=== PATIENT | male | born 1955 | race Caucasian/White ===

== ENCOUNTER → 2020-09-23 | Outpatient (CLI) | payer MEDICARE ==
[2020-09-23 12:02] LABS: BASOPHILS % (AUTO) 1 % (0-1); EOSINOPHILS % (AUTO) 3 % (1-7); LYMPHOCYTES % (AUTO) 25 % (22-44); MEAN CORPUSCULAR HEMOGLOBIN 29.8 pg (27.5-34.5); MEAN CORPUSCULAR HGB CONC 33.7 g/dL (33.2-36.2); MEAN PLATELET VOLUME 7.9 fL (7.4-10.4); MONOCYTES % (AUTO) 7 % (2-9); NEUTROPHILS % (AUTO) 64 % (42-75); PLATELET COUNT 254 x10^3/uL (130-400); RED BLOOD COUNT 5.36 x10^6/uL (4.38-5.82); RED CELL DISTRIBUTION WIDTH 13.8 % (9.4-14.8)
[2020-09-23 12:04] LABS: MD NO
[2020-09-23 12:13] LABS: ALANINE AMINOTRANSFERASE 32 U/L (12-78); ALBUMIN 3.8 g/dL (3.4-5.0); ANION GAP 8 mmol/L (5-15); CHLORIDE 108 mmol/L (98-107); CREATININE 1.13 mg/dL (0.7-1.3)
[2020-09-23 12:15] LABS: ALKALINE PHOSPHATASE 89 U/L (45-117); BILIRUBIN,TOTAL 0.6 mg/dL (0.2-1.0); TOTAL PROTEIN 7.7 g/dL (6.4-8.2)
== END | disposition home or self-care (01) ==
LOC: STAR 10:49
PROVIDERS: ATTEND Orthopaedic Surgery
DX: Z01.812 Encounter for preprocedural laboratory examination (principal); Z20.828 Contact with and (suspected) exposure to other viral communicable diseases; M16.12 Unilateral primary osteoarthritis, left hip
CPT/HCPCS: 80053; 85025; 87081; 87635; 93005

== ENCOUNTER 2020-09-28 08:48 | Day surgery (SDC) | payer MEDICARE ==
[~2020-09-28] VITALS: Ht 190.5 cm; Wt 102.5 kg
[~2020-09-28 08:48] MED LIST: EPINEPHRINE 1 MG/ML, 1ML ONE; KETOROLAC 60 MG/2 ML ONE; ROPIvacaine/PF 0.2%, 20 ML ONE; SODIUM CHLORIDE 0.9% 50 ML ONE; TRANEXAMIC ACID 100 MG/ML, 10ML ONE; VANCOMYCIN 1,000 MG ONE
[2020-09-28] MEDS ORDERED: CHLORHEXIDINE 15 ML UDC MM ONE (09:30)
[2020-09-28] MEDS ORDERED: LACTATED RINGERS 1,000 ML IV SCH (09:30)
[2020-09-28] MEDS ORDERED: MIDAZOLAM 1 MG/ML, 2ML ONE (09:41)
[2020-09-28] MEDS ORDERED: FENTANYL PF 250 MCG/5ML ONE (09:41)
[2020-09-28] MEDS ORDERED: SODIUM CHLORIDE 0.9% IV SCH (10:00)
[2020-09-28] MEDS ORDERED: VANCOMYCIN 2,000 MG in SODIUM CHLORIDE 0.9% 500 ML IV ONE (10:00)
[2020-09-28] MEDS ORDERED: VANCOMYCIN PER PHARMACY MC PRN (10:00)
[2020-09-28] MEDS ORDERED: PHARMACOKINETIC CONSULTATION MC ONE (10:00)
[2020-09-28] MEDS ORDERED: VANCOMYCIN IV SCH (10:00)
[2020-09-28] MEDS ORDERED: HYDROmorphone 1 MG/ML, 1ML INJ IVPush PRN (10:30)
[2020-09-28] MEDS ORDERED: ACETAMINOPHEN 325 MG TABLET PO PRN (10:30)
[2020-09-28] MEDS ORDERED: LABETALOL 5MG/ML, 20ML IV PRN (10:30)
[2020-09-28] MEDS ORDERED: MORPHINE SULFATE 4 MG/ML, 1ML IVPush PRN (10:30)
[2020-09-28] MEDS ORDERED: KETOROLAC 30 MG/1 ML IV SCH (10:30)
[2020-09-28] MEDS ORDERED: PROMETHAZINE 12.5 MG SUPP PR PRN (10:30)
[2020-09-28] MEDS ORDERED: ONDANSETRON 4 MG TABLET PO PRN ×2 (10:30)
[2020-09-28] MEDS ORDERED: OXYcodone/APAP 5/325MG TABLET PO PRN (10:30)
[2020-09-28] MEDS ORDERED: ONDANSETRON 2MG/ML, 2ML IVPush PRN (10:30)
[2020-09-28] MEDS ORDERED: LORazepam 2 MG/ML, 1ML IVPush PRN (10:30)
[2020-09-28] MEDS ORDERED: MEPERIDINE/PF 25MG/0.5ML IVPush PRN (10:30)
[2020-09-28] MEDS ORDERED: DIAZEPAM 5 MG TABLET PO PRN (10:30)
[2020-09-28] MEDS ORDERED: PROMETHAZINE 25 MG/ML, 1ML IVPush PRN (10:30)
[2020-09-28] MEDS ORDERED: GLYCOPYRROLATE 0.2MG/1ML, 5ML ONE (11:13)
[2020-09-28] MEDS ORDERED: ONDANSETRON 2MG/ML, 2ML ONE (11:13)
[2020-09-28] MEDS ORDERED: NEOSTIGMINE 1 MG/ML, 10ML ONE (11:13)
[2020-09-28] MEDS ORDERED: ROCURONIUM 10MG/ML,5ML ONE (11:13)
[2020-09-28] MEDS ORDERED: CEFAZOLIN 1,000 MG ONE (11:13)
[2020-09-28] MEDS ORDERED: PROPOFOL 10 MG/ML, 20ML ONE (11:13)
[2020-09-28] MEDS ORDERED: OXYcodone 5 MG/5 ML ORAL.SOL UDC ONE ×2 (12:11→12:26)
[2020-09-28] MEDS ORDERED: FENTANYL PF 100 MCG/2ML ONE (12:11)
[2020-09-28] MEDS: OXYcodone 5 MG/5 ML ORAL.SOL UDC PO PRN ×2 (12:12→12:40)
[2020-09-28] MEDS: FENTANYL PF 100 MCG/2ML IV PRN ×3 (12:15→13:00)
[2020-09-28] MEDS ORDERED: ACETAMINOPHEN 325 MG TABLET ONE (12:26)
[2020-09-28] MEDS ORDERED: ACETAMINOPHEN 650 MG/20.3 ML UDC ONE (12:26)
[2020-09-28] MEDS ORDERED: TRANEXAMIC ACID 1,000 MG in SODIUM CHLORIDE 0.9% 100 ML IVPB ONE (12:30)
[2020-09-28] MEDS ORDERED: METHOCARBAMOL 1,000 MG in DEXTROSE 5% 100 ML IV PRN (13:00)
[2020-09-28] MEDS ORDERED: KETOROLAC 30 MG/1 ML ONE (13:59)
[2020-09-28] MEDS ORDERED: CEFAZOLIN PMX 1GM/50ML 50 ML IVPB SCH (18:00)
[2020-09-28] MEDS ORDERED: DOCUSATE 100 MG CAPSULE PO SCH (21:00)
[2020-09-29] MEDS ORDERED: ASPIRIN 81 MG TABLET EC PO SCH ×2 (06:00→18:00)
== END 2020-09-28 16:40 | disposition home or self-care (01) ==
LOC: OUT 08:48
PROVIDERS: ATTEND Orthopaedic Surgery
DX: M16.12 Unilateral primary osteoarthritis, left hip (principal); M25.752 Osteophyte, left hip; F17.200 Nicotine dependence, unspecified, uncomplicated; Z79.891 Long term (current) use of opiate analgesic
CPT/HCPCS: 27130; 36415; 73502; 86850; 86900; 97161; C1713; C1776; J0171; J0690; J1885; J2250; J2405; J2704; J2710; J2795; J2800; J3010; J3370